=== PATIENT | female | born 1960 | race Hispanic/Latino ===

== ENCOUNTER 2018-10-13 03:44 | Observation (INO) | payer BC, OTHER ==
[2018-10-13 03:47] VITALS: BMI 29.9
--- NOTE | 2018-10-13 04:04 | ED PDOC ---
Arrival/HPI - General Chief Complaint: Chest Pain Time Seen by Provider: 10/13/18 03:49 Historian: Patient - History of Present Illness Narrative History of Present Illness (Text): 10/13/18 04:03 Emily Burgos is a 58 year old female, whose past medical history includes CVA and hypertension, who presents to the Emergency department complaining of chest,shoulder,left arm pain. Patient states she woke up yesterday at 21:00 with onset of symptoms. Patient notes some reproducible pain with movement. Patient states she took Aspirin at home, with no significant improvement. Patient denies any fever, chills, shortness of breath, nausea, vomiting, diarrhea, urinary symptoms, back pain, neck pain, headache, dizziness, or any other complaints. Symptom Onset: Gradual Symptom Course: Unchanged Activities at Onset: Light Context: Home Past Medical History - Provider Review Nursing Documentation Reviewed: Yes - Infectious Disease Hx of Infectious Diseases: None - Cardiac Hx Hypertension: Yes Hx Peripheral Vascular Disease: Yes - Neurological HX Cerebrovascular Accident: Yes (2005) - Hematological/Oncological Hx Blood Disorders: No - Integumentary Hx Dermatological Disorder: No - Musculoskeletal/Rheumatological Hx Musculoskeletal Disorders: No - Gastrointestinal Hx Gastrointestinal Disorders: No - Genitourinary/Gynecological Hx Genitourinary Disorders: No - Psychiatric Hx Psychophysiologic Disorder: No Hx Substance Use: No - Surgical History Hx Cardiac Catheterization: Yes (unsure of # of stents) - Anesthesia Hx Anesthesia: Yes Hx Anesthesia Reactions: No Family/Social History - Physician Review Nursing Documentation Reviewed: Yes Family/Social History: Unknown Family HX Smoking Status: Never Smoked Hx Alcohol Use: No Hx Substance Use: No Allergies/Home Meds Allergies/Adverse Reactions: Allergies No Known Allergies Allergy (Verified 10/13/18 03:47) Home Medications: Home Meds Medication Instructions Recorded Confirmed Cholecalciferol (Vitamin D3) 1,000 units PO DAILY 10/16/15 10/13/18 [Vitamin D] Clopidogrel [Plavix] 75 mg PO DAILY 10/16/15 10/13/18 Gemfibrozil [Lopid] 600 mg PO DAILY 10/16/15 10/13/18 Aspirin [Adult Aspirin] 81 mg PO DAILY 06/26/18 10/13/18 Famotidine [Pepcid] 40 mg PO DAILY 06/26/18 10/13/18 Folic Acid 1 mg PO DAILY 06/26/18 10/13/18 Ibuprofen [Motrin Tab] 800 mg PO DAILY PRN 06/26/18 10/13/18 Magnesium Oxide [Mag-Ox] 400 mg PO DAILY 06/26/18 10/13/18 Meloxicam [Mobic] 15 mg PO DAILY 06/26/18 10/13/18 Multivitamin [Daily Oren] 1 tab PO DAILY 06/26/18 10/13/18 Polyethylene Glycol/Polyvinyl 1 appl OP DAILY 06/26/18 10/13/18 [Artificial Tears] Valsartan/Hydrochlorothiazide 0.5 each PO DAILY 06/26/18 10/13/18 [Diovan Hct 160-12.5 mg Tab] Vitamin B Complex [B Complex] 1 each PO DAILY 06/26/18 10/13/18 Review of Systems - Physician Review All systems were reviewed & negative as marked: Yes - Review of Systems Constitutional: Normal. absent: Fevers Eyes: Normal ENT: Normal Respiratory: Normal. absent: SOB, Cough Gastrointestinal: Normal. absent: Abdominal Pain, Diarrhea, Nausea, Vomiting Genitourinary Female: Normal. absent: Dysuria, Frequency, Hematuria, Urine Output Changes Musculoskeletal: Normal. absent: Back Pain, Neck Pain Skin: Normal. absent: Rash Neurological: Normal. absent: Headache, Dizziness Endocrine: Normal Hemo/Lymphatic: Normal Psychiatric: Normal Physical Exam Vital Signs Reviewed: Yes Temperature: Afebrile Blood Pressure: Normal Pulse: Regular Respiratory Rate: Normal Appearance: Positive for: Well-Appearing, Non-Toxic, Comfortable Pain Distress: None Mental Status: Positive for: Alert and Oriented X 3 - Systems Exam Head: Present: Atraumatic, Normocephalic Pupils: Present: PERRL Extroacular Muscles: Present: EOMI Conjunctiva: Present: Normal Mouth: Present: Moist Mucous Membranes Neck: Present: Normal Range of Motion Respiratory/Chest: Present: Clear to Auscultation, Good Air Exchange. No: Res piratory Distress, Accessory Muscle Use Cardiovascular: Present: Regular Rate and Rhythm, Normal S1, S2. No: Murmurs Abdomen: No: Tenderness, Distention, Peritoneal Signs Back: Present: Normal Inspection Upper Extremity: Present: Tenderness (Pain at any attempt of movement of left shoulder). No: Cyanosis, Edema Lower Extremity: Present: Normal Inspection. No: Edema Neurological: Present: GCS=15, CN II-XII Intact, Speech Normal Skin: Present: Warm, Dry, Normal Color. No: Rashes Psychiatric: Present: Alert, Oriented x 3, Normal Insight, Normal Concentration Medical Decision Making ED Course and Treatment: 10/13/18 04:03 Impression: 58 year old female complaining of left sided chest/shoulder/arm pain. Differential Diagnosis included but are not limited to: bursitis vs. cardiac angina vs. peripheral neuropathy Plan: -- EKG -- Chest X-ray -- Labs, cardiac enzymes -- Reassess and disposition Prior Visits: Notes and results from previous visits were reviewed. Progress Notes: Reviewed EKG, NSR at [address]-segment elevations or depressions, no T-wave inversions, normal intervals. 10/13/18 04:41 Chest X-ray reviewed, shows no acute processes. 10/13/18 05:[address] Hernandez, who is aware and agrees with plan. Accepts pt in to his service. Pt will go to Telemetry observation for chest pain. Requests Dr. Peoples on consult. - Lab Interpretations I have reviewed the lab results: Yes - RAD Interpretation Macadam Raker: ED Physician - EKG Interpretation Interpreted by ED Physician: Yes Type: 12 lead EKG - Scribe Statement The provider has reviewed the documentation as recorded by the Lalyibjuana Tobar Provider Scribe Attestation: All medical record entries made by the Scribe were at my direction and personally dictated by me. I have reviewed the chart and agree that the record accurately reflects my personal performance of the history, physical exam, medical decision making, and the department course for this patient. I have also personally directed, reviewed, and agree with the discharge instructions and disposition. Disposition/Present on Arrival - Present on Arrival Any Indicators Present on Arrival: No History of DVT/PE: No History of Uncontrolled Diabetes: No Urinary Catheter: No History of Decub. Ulcer: No History Surgical Site Infection Following: None - Disposition Have Diagnosis and Disposition been Completed?: Yes Diagnosis: Chest pain Disposition: HOSPITALIZED Disposition Time: 05:41 Patient Plan: Observation Condition: STABLE Discharge Instructions (ExitCare): Chest Pain (ED) Referrals: Keanu Hernandez MD [Primary Care Provider] - Follow up with primary Forms: [employer] (Ukrainian)
[2018-10-13] MEDS ORDERED: Morphine 2 mg/ml ISec IVP STA (04:12)
[2018-10-13 04:33] LABS: HEMOGLOBIN 12.9 g/dL (12.0-16.0); MEAN CELL VOLUME 89.6 fl (80.0-105.0); MEAN CORPUSCULAR HEMOGLOBIN 29.2 pg (25.0-35.0); MEAN CORPUSCULAR HGB CONC 32.6 g/dl (31.0-37.0); RBC 4.42 10^6/uL (3.5-6.1); RED CELL DISTRIBUTION WIDTH 12.9 % (11.5-14.5); WHITE BLOOD COUNT 8.5 10^3/uL (4.5-11.0)
[2018-10-13 04:35] LABS: INR 0.99; PARTIAL THROMBOPLASTIN TIME 32.8 Seconds (25.1-36.5); PROTHROMBIN TIME 11.3 SECONDS (9.4-12.5)
[2018-10-13 04:36] LABS: ALB/GLOB RATIO 1.5 (1.1-1.8); ALBUMIN 4.5 g/dL (3.0-4.8); BLOOD UREA NITROGEN 17 mg/dL (7-21); CALCIUM 9.6 mg/dL (8.4-10.5); GFR NON-AFRICAN AMERICAN > 60
[2018-10-13 04:47] LABS: TROPONIN I < 0.01 ng/mL
[2018-10-13 05:00] LABS: ALT/SGPT 28 U/L (7-56); AST/SGOT 29 U/L (14-36)
[2018-10-13] MEDS ORDERED: Morphine 4 mg/ml ISec IVP STA (05:43)
[2018-10-13 07:06] VITALS: RESP 18; O2SAT 97
--- NOTE | 2018-10-13 09:16 | RAD ---
Date of service: 10/13/2018 HISTORY: pain COMPARISON: 10/11/2016. FINDINGS: LUNGS: The lungs are well inflated and clear. PLEURA: No pleural effusions or pneumothorax. CARDIOVASCULAR: The heart is normal in size. No aortic atherosclerotic calcifications present. OSSEOUS STRUCTURES: Within normal limits for the patient's age. VISUALIZED UPPER ABDOMEN: Normal. OTHER FINDINGS: None. IMPRESSION: No active pulmonary disease.
[2018-10-13] MEDS ORDERED: Cholecalciferol 1,000 INTLU TAB PO SCH (10:00)
[2018-10-13] MEDS ORDERED: VALSARTAN PO SCH (10:00)
[2018-10-13] MEDS ORDERED: [UNRECOGNIZED DRUG - OTHER] PO SCH (10:00)
[2018-10-13] MEDS ORDERED: HYDROCHLOROTHIAZIDE PO SCH (10:00)
[2018-10-13] MEDS ORDERED: Magnesium Oxide 400 mg Tab UD PO SCH (10:00)
[2018-10-13] MEDS ORDERED: VITAMIN B COMPLEX PO SCH (10:00)
[2018-10-13] MEDS ORDERED: Oxycodone/Acetaminophen 10/325 mg Tab PO STA (10:44)
--- NOTE | 2018-10-13 10:56 | CARD ---
APPROVED REPORT Date of service: 10/13/2018 EKG Measurement Heart [id number] <Conclusion> Normal sinus rhythm Normal ECG
--- NOTE | 2018-10-13 11:58 | RAD ---
Date of service: 10/13/2018 PROCEDURE: Radiographs of the left shoulder HISTORY: Radiating shoulder/arm pain COMPARISON: No prior. FINDINGS: BONES: Bone alignment is normal. There is no acute displaced fracture or bone destruction. There is mild diffuse bone demineralization JOINTS: The glenohumeral and acromioclavicular joints are preserved. No significant degenerative osteoarthrosis. SOFT TISSUES: Normal. OTHER FINDINGS: None. IMPRESSION: No acute displaced fracture or dislocation.
--- NOTE | 2018-10-13 12:14 | CON ---
DATE: 10/13/2018 CARDIOLOGY CONSULTATION HISTORY: The patient is a 58-year-old woman, who presents with a history of TIA in the past and history of hypertension, who presents waking up with difficulty moving her left shoulder. The chest pain that she describes occurs when she tends to move her left shoulder. Her symptoms are reproducible on manipulation of the left arm. No shortness of breath. No chest pain. PAST MEDICAL HISTORY: The patient's past medical history includes a stress test that was performed 2 months ago, which showed unremarkable stress test with good LV function, and no ischemia. Her cardiac risk factors include hypertension and hypercholesterolemia. She was on Plavix at home intermittently for history of TIA. She is currently on aspirin. SOCIAL HISTORY: Denies smoking. REVIEW OF SYSTEMS: Review of systems was reviewed. No additional cardiac symptoms were elicited. PHYSICAL EXAMINATION: VITAL SIGNS: Blood pressure is 140/65, the heart rate is in the 60s. NECK: Negative JVD. LUNGS: Without rales. CARDIAC: Heart rate S1, S2. EXTREMITIES: Without edema. EKG shows no acute changes. LABORATORY DATA: The first troponin is negative. BUN and creatinine are unremarkable. The glucose is 121. Hemoglobin is 12. IMPRESSION: 1. Chest pain which is likely musculoskeletal related to her left shoulder. 2. No evidence for acute coronary syndrome. 3. Hypertension. 4. Borderline diabetes mellitus. 5. Hypercholesterolemia. PLAN: Given these findings, the patient should be on a daily aspirin. We will obtain a second troponin. We will obtain an x-ray of her left shoulder. There is no evidence for her chest pain being of cardiac origin. One Percocet has been ordered for her left shoulder pain. David Velasquez MD
[2018-10-13 12:24] VITALS: BP 135/59; TEMP 98.2
[2018-10-13] MEDS ORDERED: Bupivacaine 0.5% Inj(30mL) IJ ONE (14:15)
[2018-10-13] MEDS ORDERED: MethylPREDNISolone Depo 40 mg/ml Inj IM ONE (14:15)
[2018-10-13 15:38] VITALS: PULSE 85
--- NOTE | 2018-10-14 07:46 | CON ---
DATE OF CONSULT: 10/13/2018 ORTHOPEDIC CONSULT HISTORY OF PRESENT ILLNESS: The patient is a 58-year-old female in room 275, bed 1, with a complaint of left shoulder pain, which started approximately 24 hours ago, never had this before, but she does a lot of manual work and that she is right-hand dominant. I tried to do range of motion of the arm, and it was very restricted because of capsulitis. X-ray shows mild osteoarthritis of AC joint and mild subacromial impingement, but no evidence of law rotator cuff tear and no arthritis other than the AC joints. So, I felt as though that was indication for injection of Depo-Medrol, Marcaine to stop the process of inflammation, and then she could start moving the shoulder. I told her it would take couple of weeks to really get better and that she should keep moving the shoulder by starting with pendulum exercises and then activities of daily living, but not to do heavy exercises. So, we injected the left shoulder and subacromial region from the lateral portal with Depo-Medrol, Marcaine. Hopefully, this will help her feel better, and I will follow her in the office if need be. FINAL DIAGNOSES: Subacromial impingement with restrictive capsulitis of the left shoulder and acromioclavicular joint arthritis. Eran Carroll DO GINO
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
--- NOTE | 2018-10-14 19:32 | DS ---
DISCHARGE DIAGNOSES: 1. Chest pain, noncardiac. 2. Left shoulder bursitis. 3. Anxiety. 4. Chronic back pain. 5. Chronic osteoarthritis. 6. Overweight. DISPOSITION: We will discharge the patient home. Follow up in the office within a week. Keanu Hernandez MD
== END 2018-10-13 16:25 | disposition home or self-care (01) ==
LOC: ED 03:44 → ERH 05:42 → 2RSO 07:09
PROVIDERS: ADMIT Internal Medicine; ATTEND Internal Medicine
DX: R07.89 Other chest pain (principal); I10 Essential (primary) hypertension; E78.00 Pure hypercholesterolemia, unspecified; M25.512 Pain in left shoulder; I73.9 Peripheral vascular disease, unspecified; R73.03 Prediabetes; Z86.73 Personal history of transient ischemic attack (TIA), and cerebral infarction without residual deficits; Z79.02 Long term (current) use of antithrombotics/antiplatelets; Z79.1 Long term (current) use of non-steroidal anti-inflammatories (NSAID); Z79.82 Long term (current) use of aspirin
CPT/HCPCS: 36415; 71045; 73030; 80053; 82550; 83615; 84484; 85027; 85610; 85730; 93005; 96374; 96375; 96376; 99285; G0378; J1885; J2270